=== PATIENT | male | born 1945 | race African-American/Black ===

== ENCOUNTER → 2018-04-30 | Outpatient (CLI) | payer MEDICARE, MEDICAID | END | disposition home or self-care (01) | LOC: RAD 11:25 | PROVIDERS: ATTEND Specialist | DX: Z01.818 Encounter for other preprocedural examination (principal); M54.5 Low back pain | CPT/HCPCS: 71046 ==

== ENCOUNTER → 2020-07-20 | Outpatient (CLI) | payer MEDICARE, MEDICAID ==
[~2020-07-20] MED LIST: AMLO10TA80 PO; ASPI-1497 PO; BETA1TAB21 PO; BUPR-102 PO; CLOP75TA4 PO; HYDR-4133 PO; LIP40 PO; METO-385 PO; OLME40TA11 PO; OLME40TA18 PO; TAMS-11 PO; TRAM50TA PO
== END | disposition home or self-care (01) ==
LOC: LAB 10:28
PROVIDERS: ATTEND Specialist
DX: Z01.818 Encounter for other preprocedural examination (principal); R06.02 Shortness of breath; M47.812 Spondylosis without myelopathy or radiculopathy, cervical region
CPT/HCPCS: 71046

== ENCOUNTER → 2020-07-28 | Outpatient (CLI) | payer MEDICARE, MEDICAID | END | disposition home or self-care (01) | LOC: LAB 08:28 | PROVIDERS: ATTEND Neurological Surgery | DX: Z01.812 Encounter for preprocedural laboratory examination (principal); Z20.828 Contact with and (suspected) exposure to other viral communicable diseases | CPT/HCPCS: C9803; U0003 ==

== ENCOUNTER 2020-07-31 06:48 | Inpatient (IN) | payer MEDICARE, MEDICAID ==
[2020-07-31] VITALS (51 sets, daily range): BP systolic 97–199; BP diastolic 36–97
[~2020-07-31] VITALS: Ht 175.3 cm; Wt 76.7 kg
[2020-07-31] MEDS ORDERED: LACTATED RINGERS 1,000 ML IV SCH (08:40)
[2020-07-31] MEDS ORDERED: THROMBIN (BOVINE) 5000 UNITS/VIAL TOP ONE (08:55)
[2020-07-31] MEDS ORDERED: LIDOCAINE HCL/EPINEPHRINE 1%-EPI 1:100,000 20 ML VIAL ONE (08:55)
[2020-07-31] MEDS ORDERED: BACITRACIN 50,000 UNITS/VIAL ONE (08:55)
[2020-07-31 09:35] LABS: CLARITY URINE CLEAR (CLEAR); COLOR URINE YELLOW (YELLOW); KETONES URINE NEGATIVE (NEGATIVE); LEUKOCYTE ESTERASE URINE 1+ (NEGATIVE); NITRITE URINE POSITIVE (NEGATIVE); OCCULT BLOOD URINE NEGATIVE (NEGATIVE); PH URINE 6.5 (4.5-8.0); PROTEIN URINE NEGATIVE (NEGATIVE); SPECIFIC GRAVITY URINE 1.018 (1.005-1.030)
[2020-07-31] MEDS ORDERED: FENTANYL CITRATE/PF 50MCG/ML 2ML VIAL ONE (09:42)
[2020-07-31] MEDS ORDERED: ROCURONIUM BROMIDE 10MG/ML VIAL 5ML IV ONE (09:42)
[2020-07-31] MEDS ORDERED: NEOSTIGMINE METHYLSULFATE 1MG/ML 10 ML VIAL ONE (09:43)
[2020-07-31] MEDS ORDERED: GLYCOPYRROLATE 0.2 MG/ML 2ML VIAL ONE ×2 (09:43→11:30)
[2020-07-31] MEDS ORDERED: PROPOFOL 200MG/20ML VIAL IV ONE (09:43)
[2020-07-31] MEDS ORDERED: MIDAZOLAM HCL 2 MG/2 ML VIAL ONE (09:43)
[2020-07-31] MEDS ORDERED: DEXAMETHASONE 4MG/ML 1ML VIAL ONE (09:44)
[2020-07-31] MEDS ORDERED: ONDANSETRON HCL 4MG/2ML INJ ONE (09:44)
[2020-07-31] MEDS ORDERED: TAMS-11 PO (10:23)
[2020-07-31] MEDS ORDERED: OLME40TA18 PO (10:23)
[2020-07-31] MEDS ORDERED: AMLO10TA80 PO (10:23)
[2020-07-31] MEDS ORDERED: OLME40TA11 PO (10:23)
[2020-07-31] MEDS ORDERED: CLOP75TA4 PO (10:23)
[2020-07-31] MEDS ORDERED: ASPI-1497 PO (10:23)
[2020-07-31] MEDS ORDERED: METO-385 PO (10:23)
[2020-07-31] MEDS ORDERED: BETA1TAB21 PO (10:23)
[2020-07-31] MEDS ORDERED: BUPR-102 PO (10:23)
[2020-07-31] MEDS ORDERED: TRAM50TA PO (10:23)
[2020-07-31] MEDS ORDERED: LIP40 PO (10:23)
[2020-07-31] MEDS ORDERED: MORPHINE SULFATE 4 MG/ML CPJ (NOT FOR IM USE) IV PRN (11:30)
[2020-07-31] MEDS ORDERED: NALOXONE INJ IV PRN (12:00)
[2020-07-31] MEDS ORDERED: ONDANSETRON INJ IV PRN (12:00)
[2020-07-31] MEDS: DEXAMETHASONE 4MG/ML 1ML VIAL IV SCH ×3 (12:06→23:38)
[2020-07-31] MEDS: DEXT 5%/LACTATED RINGERS 1,000 ML IV SCH ×2 (12:09→19:46)
[2020-07-31] MEDS: NICARDIPINE 100 MG in SODIUM CHLORIDE 0.9% 60 ML IV PRN ×2 (12:13→19:42)
[2020-07-31] MEDS ORDERED: HYDROMORPHONE PCA 10MG/50ML IV PRN (13:00)
[2020-07-31] MEDS ORDERED: CEFAZOLIN SODIUM 1000MG/VIAL IV SCH (14:00)
[2020-07-31] MEDS: CEFAZOLIN 1000MG PREMIX 50 ML IV SCH ×2 (14:20→21:46)
[2020-07-31] MEDS ORDERED: TAMSULOSIN HCL 0.4MG SR CAPSULE PO SCH (15:00)
[2020-07-31] MEDS ORDERED: AMLODIPINE 10MG TABLET PO SCH (15:00)
[2020-07-31] MEDS ORDERED: SENNOSIDES/DOCUSATE SOD 8.6/50MG TABLET PO PRN (16:00)
[2020-07-31] MEDS ORDERED: ATORVASTATIN CALCIUM 40MG TABLET PO SCH (16:00)
[2020-07-31] MEDS ORDERED: IPRATROPIUM/ALBUTEROL 0.5-3(2.5)MG/3ML NEB HHN PRN (16:00)
[2020-07-31] MEDS ORDERED: PHENOL/SODIUM PHENOLATE 1.4% SRPAY 177ML MM PRN (16:00)
[2020-07-31] MEDS ORDERED: THROAT LOZENGES-BENZOCAINE/MENTH/CETYLPYRD CL LOZENGES MM PRN (16:00)
[2020-08-01] VITALS (52 sets, daily range): BP systolic 71–146; BP diastolic 20–80
[2020-08-01] MEDS: CEFAZOLIN 1000MG PREMIX 50 ML IV SCH (05:02)
[2020-08-01] MEDS: DEXAMETHASONE 4MG/ML 1ML VIAL IV SCH ×2 (05:02→12:04)
[2020-08-01] MEDS: DEXT 5%/LACTATED RINGERS 1,000 ML IV SCH (08:31)
[2020-08-01] MEDS: NICARDIPINE 100 MG in SODIUM CHLORIDE 0.9% 60 ML IV PRN (08:31)
[2020-08-01] MEDS ORDERED: ATORVASTATIN CALCIUM 40MG TABLET PO SCH ×2 (09:00→21:00)
[2020-08-01] MEDS: PANTOPRAZOLE SODIUM 40 MG/VIAL IV SCH (10:45)
[2020-08-01] MEDS: DOCUSATE SODIUM 100MG CAPSULE PO SCH (10:45)
[2020-08-01 16:01] LABS: HEMATOCRIT. 37.8 % (42.0-52.0); HEMOGLOBIN. 12.6 g/dL (14.0-18.0); MEAN CORPUSCULAR HEMOGLOBIN 31.3 pg (28.0-32.0); MEAN CORPUSCULAR VOLUME 94.2 fL (80.0-94.0); MEAN PLATELET VOLUME 8.4 fl (7.4-10.4); PLATELET 158 x1000/uL (130-400); RED BLOOD CELL COUNT 4.02 mill/uL (4.7-6.1); RED CELL DISTRIBUTION WIDTH 13.6 % (11.6-14.6)
[2020-08-01 16:05] LABS: CHLORIDE 107 mEq/L (98-107)
[2020-08-01 18:01] LABS: PLATELET ESTIMATE NORMAL
[2020-08-02] VITALS: BP 158/74
[2020-08-02] MEDS ORDERED: AMLODIPINE 10MG TABLET PO NR (01:45)
[2020-08-02 04:00] VITALS: BP 156/74
[2020-08-02 06:58] LABS: HEMATOCRIT. 38.9 % (42.0-52.0); HEMOGLOBIN. 13.1 g/dL (14.0-18.0); MEAN CORPUSCULAR HEMOGLOBIN 31.3 pg (28.0-32.0); MEAN CORPUSCULAR VOLUME 92.9 fL (80.0-94.0); MEAN PLATELET VOLUME 8.7 fl (7.4-10.4); PLATELET 159 x1000/uL (130-400); RED BLOOD CELL COUNT 4.19 mill/uL (4.7-6.1); RED CELL DISTRIBUTION WIDTH 13.8 % (11.6-14.6)
[2020-08-02 08:00] VITALS: BP 156/65
[2020-08-02 08:13] LABS: CHLORIDE 108 mEq/L (98-107)
[2020-08-02] MEDS: DOCUSATE SODIUM 100MG CAPSULE PO SCH (09:01)
[2020-08-02] MEDS: PANTOPRAZOLE SODIUM 40 MG/VIAL IV SCH (09:02)
[2020-08-02] MEDS ORDERED: AMLODIPINE 10MG TABLET PO SCH (09:45)
[2020-08-02] MEDS ORDERED: METOPROLOL TARTRATE 25MG TABLET PO SCH (10:00)
[2020-08-02 10:28] VITALS: BP 146/63
[2020-08-02 12:35] LABS: PLATELET ESTIMATE NORMAL
[2020-08-02 13:38] VITALS: BP 153/70
[2020-08-02] MEDS ORDERED: HYDRALAZINE HCL 10MG TABLET PO SCH (14:00)
[2020-08-02] MEDS ORDERED: HYDR-4133 PO (14:50)
[2020-08-03] MEDS ORDERED: METOPROLOL TARTRATE 50MG TABLET PO SCH (09:00)
== END 2020-08-02 16:10 | disposition home health service (06) | DRG 471 ==
LOC: OR 06:48 → MICUNO 06:49 → 6EST 08-01 12:55
PROVIDERS: ADMIT Internal Medicine; ATTEND Internal Medicine
PROC: 0RG10A0 Fusion of Cervical Vertebral Joint with Interbody Fusion Device, Anterior Approach, Anterior Column, Open Approach (ICD-10-PCS; principal; 2020-07-31)
PROC: 0RB30ZZ Excision of Cervical Vertebral Disc, Open Approach (ICD-10-PCS; 2020-07-31)
PROC: 4A11X4Z Monitoring of Peripheral Nervous Electrical Activity, External Approach (ICD-10-PCS; 2020-07-31)
DX: M48.02 Spinal stenosis, cervical region (principal); G82.50 Quadriplegia, unspecified; G95.20 Unspecified cord compression; N17.9 Acute kidney failure, unspecified; M47.12 Other spondylosis with myelopathy, cervical region; M50.10 Cervical disc disorder with radiculopathy, unspecified cervical region; N40.0 Benign prostatic hyperplasia without lower urinary tract symptoms; M47.22 Other spondylosis with radiculopathy, cervical region; I10 Essential (primary) hypertension; F41.9 Anxiety disorder, unspecified; E78.5 Hyperlipidemia, unspecified; I73.9 Peripheral vascular disease, unspecified; I25.10 Atherosclerotic heart disease of native coronary artery without angina pectoris; I25.82 Chronic total occlusion of coronary artery; E78.00 Pure hypercholesterolemia, unspecified; R26.89 Other abnormalities of gait and mobility; D72.829 Elevated white blood cell count, unspecified; F17.210 Nicotine dependence, cigarettes, uncomplicated; F32.9 Major depressive disorder, single episode, unspecified; I65.29 Occlusion and stenosis of unspecified carotid artery; Z97.0 Presence of artificial eye; Z80.42 Family history of malignant neoplasm of prostate; Z79.899 Other long term (current) drug therapy; Z79.02 Long term (current) use of antithrombotics/antiplatelets; Z98.1 Arthrodesis status; J02.9 Acute pharyngitis, unspecified; R00.1 Bradycardia, unspecified
CPT/HCPCS: 36415; 72040; 72141; 76000; 80048; 81003; 82962; 83735; 85025; 86850; 86900; 88311; 93005; 93970; 95925; 95926; 95928; 95929; 95940; 97116; 97162; 97166; 97530; C1713; C9113; J0690; J1100; J2250; J2270; J2405; J2704; J2710; J3010; J3490; J7050; J7121; L0172; C9803-CS; U0003-CS